=== PATIENT | male | born 1935 | race Caucasian/White ===

== ENCOUNTER 2020-02-02 15:07 | Outpatient (CLI) | payer MEDICARE, SELFPAY ==
--- NOTE | ~2020-02-02 | US_ITS ---
EXAMINATION: US venous doppler LE RT DATE: 02/02/2020 15:57 INDICATION: Right lower limb edema. TECHNIQUE: Grayscale ultrasound images without and with compression and Doppler ultrasound images of the right lower extremity veins were obtained. COMPARISON: Ultrasound 04/30/2013 FINDINGS: The visualized portions of right common femoral vein, profunda (deep) femoral vein, femoral vein, pop liteal vein, peroneal veins, posterior tibial veins, and greater saphenous vein outflow are patent. T here is a moderate-sized Nash's cyst with loose bodies. IMPRESSION: 1. No deep venous thrombosis. 2. Moderate-sized Nash's cyst with loose bodies. Reviewed, dictated and finalized at location B. IMPRESSION: 1. No deep venous thrombosis. 2. Moderate-sized Ansh's cyst with loose bodies.
== END 2020-02-02 15:08 | disposition home or self-care (01) ==
LOC: ANHIMG 15:18
PROVIDERS: PCP Family Medicine; Visit Provider Internal Medicine Cardiovascular Disease
DX: R60.0 Localized edema (principal); M71.21 Synovial cyst of popliteal space [Baker], right knee; M23.41 Loose body in knee, right knee
CPT/HCPCS: 93971

== ENCOUNTER 2021-03-28 08:05 | Outpatient (RCR) | payer MEDICARE, SELFPAY ==
[2021-03-14 10:21] VITALS: BMI 19.7
== END 2021-05-30 08:11 | disposition home or self-care (01) ==
LOC: ANHWOC 08:05
PROVIDERS: PCP Family Medicine; Visit Provider Family Medicine
DX: L98.429 Non-pressure chronic ulcer of back with unspecified severity (principal)
CPT/HCPCS: 99211; 99212; G0463